=== PATIENT | male | born 1950 | race Caucasian/White ===

== ENCOUNTER 2018-02-05 22:45 | Emergency (ER) | payer OTHER ==
[~2018-02-05] VITALS: Ht 180.3 cm; Wt 68.1 kg
[2018-02-05 23:27] LABS: HEMATOCRIT 46.8 % (38.0-50.0); HEMOGLOBIN 15.5 G/DL (12.5-16.6); MCHC 33.1 G/DL (30.0-36.0); MCV 90.5 FL (86-99); PLATELET COUNT 209 K/uL (156-360); RBC DIS.WIDTH-CV 14.8 % (11.8-14.6); RBC DIS.WIDTH-SD 49.6 % (39-53); RED BLOOD COUNT 5.17 M/uL (4.00-5.50); WHITE BLOOD COUNT 9.5 K/uL (4.1-10.2)
[2018-02-05 23:36] LABS: CHLORIDE 101 mEq/L (99-109); POTASSIUM 4.4 mEq/L (3.7-5.4); SODIUM 142 mEq/L (136-147)
[2018-02-05 23:37] LABS: GLUCOSE 83 mg/dL (70-99)
[2018-02-05 23:41] LABS: CREATININE 1.7 mg/dL (0.6-1.3)
[2018-02-05 23:42] LABS: UREA NITROGEN (BUN) 21 mg/dL (9-23)
[2018-02-05 23:44] LABS: GFR ESTIMATE (CALCULATED) 43 mL/min/ (58.99-99999)
[2018-02-05 23:48] LABS: TROP-I INTERPRETATION NEGATIVE; TROPONIN-I 0.05 ng/mL (0.0-0.30)
[2018-02-06] MEDS ORDERED: ARTHRITIS PAIN57 G1 TP (01:23)
[2018-02-06 01:27] VITALS: BP 148/85
== END 2018-02-06 01:33 | disposition home or self-care (01) ==
LOC: EME 22:45
DX: G62.9 Polyneuropathy, unspecified (principal); I49.8 Other specified cardiac arrhythmias; I51.7 Cardiomegaly; I49.3 Ventricular premature depolarization; R00.1 Bradycardia, unspecified; R94.31 Abnormal electrocardiogram [ECG] [EKG]; J44.9 Chronic obstructive pulmonary disease, unspecified; R91.8 Other nonspecific abnormal finding of lung field; I10 Essential (primary) hypertension; F17.200 Nicotine dependence, unspecified, uncomplicated
CPT/HCPCS: 71046; 80048; 84484; 85027; 93005; 99281; 99284